=== PATIENT | female | born 1955 | race Two or more races ===

== ENCOUNTER 2023-12-21 10:36 | Inpatient (IN) | payer OTHER ==
[~2023-12-21] VITALS: Ht 157.5 cm; Wt 69.0 kg
[2023-12-21] MEDS ORDERED: 0.9% SODIUM CHLORIDE 10 ML SYRINGE IVP PRN (10:45)
[2023-12-21] MEDS ORDERED: NOREPINEPHRINE 8 MG/0.9 % NACL 250 ML IV ONE (10:57)
[2023-12-21 11:00] LABS: SOURCE, BLOOD GAS ARTERIAL; TEMPERATURE, FAHRENHEIT, BG 90.1 FAHREN (96.0-98.6)
[2023-12-21] MEDS: INSULIN REGULAR, HUMAN 100 UNITS/ML IVP ONE (11:09)
[2023-12-21] MEDS: SODIUM CHLORIDE 0.9% 2,400 ML IV ONE (11:09)
[2023-12-21 11:10] LABS: HEMOGLOBIN 12.7 g/dL (12.0-16.0); MEAN CORPUSCULAR HEMOGLOBIN 31.5 pg (26.0-34.0); MEAN CORPUSCULAR HGB CONC 25.9 G/dL (31.0-37.0); MEAN CORPUSCULAR VOLUME 122 fL (80-100); PLATELET COUNT (AUTO) 292 K/uL (150-450); RED BLOOD CELL COUNT(AUTO) 4.02 MIL/uL (4.00-5.20); RED CELL DISTRIBUTION WIDTH 15.7 % (11.5-14.5)
[2023-12-21] MEDS: NOREPINEPHRINE 8 MG/0.9 % NACL 250 ML IV PRN (11:10)
[2023-12-21 11:12] LABS: ABG A-A DIFF O2 105.8 mmHg (10-20.0); ABG BASE EXCESS -29.7 mmol/L (-2.0-3.0); ABG CARBOXYHEMOGLOBIN 0.2 % (0.0-1.5); ABG HCO3 5.2 mmol/L (22.0-26.0); ABG METHEMOGLOBIN 1.1 % (0.0-1.5); ABG OXYGEN CONTENT 16.2 mL/dL (15.0-23.0); ABG OXYGEN SATURATION 96.7 % (95.0-98.0); ABG OXYHEMOGLOBIN 95.4 % (94.0-100.0); ABG PCO2 14 mmHg (35-45); ABG PH 6.949 (7.35-7.450); ALLEN TEST, BLOOD GAS Positive; PO2, ARTERIAL BG 80.3 mmHg (79.0-87.0); SITE, BLOOD GAS RT BRACHIAL
[2023-12-21 11:13] LABS: O2 DEVICE,BLOOD GAS CANNULA (ROOM AIR)
[2023-12-21] MEDS ORDERED: SODIUM BICARBONATE [ADULT] 8.4% 50 MEQ/50 ML SYRINGE IVP ONE (11:16)
[2023-12-21 11:19] LABS: APPEARANCE,URINE CLEAR (CLEAR); BILIRUBIN,URINE NEGATIVE (NEGATIVE); COLOR,URINE LIGHT YELLOW (YELLOW); GLUCOSE, URINE (UA) >=1000 mg/dL (NEGATIVE); KETONES,URINE 40-60 mg/dL (NEGATIVE); LEUKOCYTE ESTERASE ,URINE NEGATIVE (NEGATIVE); NITRATE,URINE NEGATIVE (NEGATIVE); OCCULT BLOOD,URINE NEGATIVE (NEGATIVE); PROTEIN,URINE TRACE mg/dL (NEGATIVE); SPECIFIC GRAVITIY, URINE 1.028 (1.003-1.030); UROBILINOGEN,URINE <=1.0 mg/dL (<=1.0)
[2023-12-21 11:25] LABS: PROTHROMBIN TIME 10.8 SEC (9.4-11.6)
[2023-12-21 11:27] LABS: TROPONIN I-HIGH SENSITIVITY 27 ng/L (<51)
[2023-12-21 11:33] LABS: LACTIC ACID 2.9 mmol/L (0.4-2.0)
[2023-12-21] MEDS: CefTRIAXone 1 GM/DEXTROSE 50 ML IV ONE (11:34)
[2023-12-21 11:37] LABS: ALANINE AMINOTRANSFERASE 26 U/L (12-78); ALBUMIN 2.4 g/dL (3.4-5.0); ALKALINE PHOSPHATASE 136 U/L (46-116); ANION GAP 35 mmol/L (8-16); ASPARTATE AMINOTRANSFERASE 17 U/L (15-37); BILIRUBIN,TOTAL 0.6 mg/dL (0.1-1.0); CALCIUM, TOTAL 9.1 mg/dL (8.8-10.5); CHLORIDE 95 mmol/L (98-107); CREATININE 3.73 mg/dL (0.60-1.30); GLOMERULAR FILTR. RATE CALC 12 mL/min (>60); POTASSIUM 3.7 mmol/L (3.5-5.1); SODIUM SERUM 137 mmol/L (136-145); TOTAL PROTEIN, SERUM 6.3 g/dL (6.4-8.2); UREA NITROGEN, BLOOD 60 mg/dL (7-18)
[2023-12-21 11:41] LABS: RBC,URINE None Seen /HPF (0-2)
[2023-12-21 11:43] LABS: BACTERIA,URINE Moderate /HPF (None Seen)
[2023-12-21 11:43] LABS: B-TYPE NATRIURETIC PEPTIDE 83 pg/mL (0-100)
[2023-12-21 11:46] LABS: ACETONE,BLOOD 1:32 (NEGATIVE)
[2023-12-21 11:49] LABS: BAND NEUTROPHILS % (MANUAL) 0 % (0-5); LYMPHOCYTES % (MANUAL) 23 % (22-44); MONOCYTES % (MANUAL) 5 % (2-9); SEGMENTED NEUTROPHILS % 72 % (40-70); TOTAL CELLS COUNTED 100
[2023-12-21] MEDS: SODIUM BICARBONATE [ADULT] 8.4% 50 MEQ/50 ML SYRINGE IVP ONE (11:49)
[2023-12-21 11:50] LABS: CARBON DIOXIDE 7 mmol/L (22-29); GLUCOSE,RANDOM 1418 mg/dL (70-110); LIPASE 944 U/L (16-77)
[2023-12-21] MEDS ORDERED: DEXTROSE 50%-WATER 25 GM/50 ML SYRINGE IVP PRN ×2 (12:00→12:15)
[2023-12-21] MEDS ORDERED: DEXTROSE 5%-WATER 1,000 ML IV SCH (12:00)
[2023-12-21] MEDS: INSULIN REGULAR, HUMAN 100 UNITS in SODIUM CHLORIDE 0.9% 99 ML IV PRN (12:14)
[2023-12-21] MEDS ORDERED: POTASSIUM CHL 20 MEQ/0.45% NS 1,000 ML IV PRN (12:15)
[2023-12-21] MEDS ORDERED: SODIUM CHLORIDE 0.45% 1,000 ML IV PRN (12:15)
[2023-12-21] MEDS ORDERED: POTASSIUM CHLORIDE 40 MEQ in SODIUM CHLORIDE 0.45% 1,000 ML IV PRN (12:15)
[2023-12-21] MEDS ORDERED: DEXTROSE 5%-0.45% SODIUM CHL 1,000 ML IV PRN (12:15)
[2023-12-21] MEDS: SODIUM CHLORIDE 0.9% 1,000 ML IV SCH (12:50)
[2023-12-21 12:59] LABS: COVID AG,FIA SOURCE NASAL SWAB
[2023-12-21 13:20] LABS: SARS-COV2 (COVID) ANTIGEN,FIA Negative (Negative)
[2023-12-21 13:32] LABS: CALCIUM, TOTAL 8.3 mg/dL (8.8-10.5); CREATININE 3.4 mg/dL (0.60-1.30)
[2023-12-21 13:53] LABS: POTASSIUM 2.3 mmol/L (3.5-5.1)
[2023-12-21] MEDS: POTASSIUM CHL 10 MEQ/WATER 50 ML IV SCH ×2 (14:49→18:48)
[2023-12-21] MEDS: POTASSIUM CHLORIDE 10% 40 MEQ/30 ML LIQUID UDCUP PO ONE ×3 (15:43→19:44)
[2023-12-21 15:51] LABS: SALICYLATE 6.3 mg/dL (2.8-20.0)
[2023-12-21 16:06] LABS: ANION GAP 33 mmol/L (8-16); CALCIUM, TOTAL 8.5 mg/dL (8.8-10.5); CHLORIDE 105 mmol/L (98-107); CREATININE 3.21 mg/dL (0.60-1.30); GLOMERULAR FILTR. RATE CALC 14 mL/min (>60); PHOSPHORUS 3.7 mg/dL (2.5-4.9); SODIUM SERUM 146 mmol/L (136-145); UREA NITROGEN, BLOOD 53 mg/dL (7-18)
[2023-12-21 16:25] LABS: ACETAMINOPHEN < 2 mcg/mL (10-30); CARBON DIOXIDE 8 mmol/L (22-29); GLUCOSE,RANDOM 1328 mg/dL (70-110); POTASSIUM 2.1 mmol/L (3.5-5.1)
[2023-12-21] MEDS: PETROLATUM,WHITE 5 GM PACKET JELLY TP ONE (16:52)
[2023-12-21] MEDS: PHENYLEPHRINE 200 MG/D5%-WATER 250 ML IV PRN (17:30)
[2023-12-21] MEDS: SODIUM CHLORIDE 0.45% 500 ML IV ONE (18:00)
[2023-12-21] MEDS ORDERED: ALBUTEROL SULFATE 2.5 MG/0.5 ML NEB SOLUTION NEB PRN (18:15)
[2023-12-21] MEDS ORDERED: MAGNESIUM HYDROXIDE SUSPENSION 30 ML UDCUP PO PRN (18:15)
[2023-12-21] MEDS ORDERED: BISACODYL 10 MG RECTAL RECTAL SUPPOSITORY PR PRN (18:15)
[2023-12-21] MEDS ORDERED: IPRATROPIUM BROMIDE 0.5 MG/2.5 ML NEB SOLUTION NEB PRN (18:15)
[2023-12-21] MEDS ORDERED: ZOLPIDEM TARTRATE 5 MG TABLET PO PRN (18:15)
[2023-12-21 18:53] LABS: ALBUMIN 2.9 g/dL (3.4-5.0); BILIRUBIN,TOTAL 0.6 mg/dL (0.1-1.0); CALCIUM, TOTAL 8.8 mg/dL (8.8-10.5); CREATININE 3.22 mg/dL (0.60-1.30); MAGNESIUM 3.3 mg/dL (1.80-2.40); PHOSPHORUS 3.1 mg/dL (2.5-4.9); POTASSIUM 3.4 mmol/L (3.5-5.1); TOTAL PROTEIN, SERUM 7.2 g/dL (6.4-8.2)
[2023-12-21 19:01] LABS: GLUCOMETER DEV NAME(LOC) ERT.5; GLUCOSE,POINT OF CARE > 600 MG/DL (70-110)
[2023-12-21 20:30] VITALS: PULSE 131
[2023-12-21] MEDS: DOCUSATE SODIUM 100 MG CAPSULE PO SCH (21:00)
[2023-12-21] MEDS: POTASSIUM CHL 10 MEQ/WATER 50 ML IV ONE (21:06)
[2023-12-21 21:21] LABS: HEMATOCRIT 50.3 % (36-46); HEMOGLOBIN 15.4 g/dL (12.0-16.0); MEAN CORPUSCULAR HEMOGLOBIN 31.4 pg (26.0-34.0); MEAN CORPUSCULAR HGB CONC 30.7 G/dL (31.0-37.0); MEAN CORPUSCULAR VOLUME 103 fL (80-100); PLATELET COUNT (AUTO) 283 K/uL (150-450); RED BLOOD CELL COUNT(AUTO) 4.91 MIL/uL (4.00-5.20); RED CELL DISTRIBUTION WIDTH 15.3 % (11.5-14.5); WHITE BLOOD COUNT (AUTO) 19.1 K/uL (4.5-11.0)
[2023-12-21 22:25] LABS: BAND NEUTROPHILS % (MANUAL) 6 % (0-5); LYMPHOCYTES % (MANUAL) 11 % (22-44); METAMYELOCYTES % 1 % (0-0); MONOCYTES % (MANUAL) 14 % (2-9); SEGMENTED NEUTROPHILS % 68 % (40-70); TOTAL CELLS COUNTED 100
[2023-12-21 23:07] LABS: CALCIUM, TOTAL 8.9 mg/dL (8.8-10.5); CREATININE 3.29 mg/dL (0.60-1.30); PHOSPHORUS 1.7 mg/dL (2.5-4.9); POTASSIUM 3.7 mmol/L (3.5-5.1)
[2023-12-21 23:14] LABS: ABG BASE EXCESS -18.6 mmol/L (-2.0-3.0); ABG CARBOXYHEMOGLOBIN 0.8 % (0.0-1.5); ABG HCO3 12.6 mmol/L (22.0-26.0); ABG METHEMOGLOBIN 0.1 % (0.0-1.5); ABG OXYGEN CONTENT 21.8 mL/dL (15.0-23.0); ABG OXYGEN SATURATION 98.3 % (95.0-98.0); ABG OXYHEMOGLOBIN 97.4 % (94.0-100.0); ABG PCO2 20 mmHg (35-45); ABG PH 7.257 (7.35-7.450); ABG TOTAL HEMOGLOBIN 15.8 G/dL (12.0-18.0); PO2, ARTERIAL BG 113.9 mmHg (79.0-87.0); SOURCE, BLOOD GAS ARTERIAL; TEMPERATURE, FAHRENHEIT, BG 97.4 FAHREN (96.0-98.6)
[2023-12-21 23:15] LABS: ALLEN TEST, BLOOD GAS POS; O2 DEVICE,BLOOD GAS CANNULA (ROOM AIR); SITE, BLOOD GAS LFT RADIAL
[2023-12-22] VITALS: BP 103/45; PULSE 130; RESP 25; TEMP 98
[2023-12-22] MEDS: SODIUM PHOS,M-BASIC-D-BASIC 30 MMOL in DEXTROSE 5%-WATER 250 ML IV ONE (00:20)
[2023-12-22] MEDS: HEPARIN SODIUM,PORCINE 5,000 UNITS/ML VIAL SQ SCH (00:20)
[2023-12-22] MEDS: POTASSIUM CHLORIDE 40 MEQ in SODIUM CHLORIDE 0.45% 1,000 ML IV PRN (00:20)
[2023-12-22] MEDS: INSULIN REGULAR, HUMAN 100 UNITS/ML IVP PRN (01:15)
[2023-12-22 02:58] LABS: CALCIUM, TOTAL 8.7 mg/dL (8.8-10.5); CREATININE 3.21 mg/dL (0.60-1.30); POTASSIUM 4.5 mmol/L (3.5-5.1)
[2023-12-22] MEDS: POTASSIUM CHL 20 MEQ/0.45% NS 1,000 ML IV PRN (03:49)
[2023-12-22] MEDS: INSULIN REGULAR, HUMAN 100 UNITS in SODIUM CHLORIDE 0.9% 99 ML IV PRN (03:53)
[2023-12-22 04:00] VITALS: BP 105/47; PULSE 129; RESP 21; TEMP 99.9
[2023-12-22 05:14] LABS: ACETONE,BLOOD 1:16 (NEGATIVE)
[2023-12-22 05:28] LABS: ALANINE AMINOTRANSFERASE 83 U/L (12-78); ALBUMIN 2.4 g/dL (3.4-5.0); ALKALINE PHOSPHATASE 129 U/L (46-116); ANION GAP 19 mmol/L (8-16); ASPARTATE AMINOTRANSFERASE 212 U/L (15-37); BILIRUBIN,TOTAL 0.5 mg/dL (0.1-1.0); CALCIUM, TOTAL 8.6 mg/dL (8.8-10.5); CARBON DIOXIDE 14 mmol/L (22-29); CHLORIDE 117 mmol/L (98-107); CREATININE 3.27 mg/dL (0.60-1.30); GLOMERULAR FILTR. RATE CALC 14 mL/min (>60); PHOSPHORUS 3.2 mg/dL (2.5-4.9); POTASSIUM 4.9 mmol/L (3.5-5.1); SODIUM SERUM 150 mmol/L (136-145); TOTAL PROTEIN, SERUM 6.1 g/dL (6.4-8.2); UREA NITROGEN, BLOOD 51 mg/dL (7-18)
[2023-12-22 05:31] LABS: GLUCOSE,RANDOM 736 mg/dL (70-110); LACTIC ACID 5.8 mmol/L (0.4-2.0)
[2023-12-22 07:16] LABS: BASOPHILS % (AUTO) 0.2 % (0.0-2.0); EOSINOPHILS % (AUTO) 0 % (1.0-6.0); HEMATOCRIT 45.1 % (36-46); HEMOGLOBIN 14.9 g/dL (12.0-16.0); LYMPHOCYTES # (AUTO) 0.6 K/uL (1.0-4.8); LYMPHOCYTES % (AUTO) 4.1 % (22.0-44.0); MEAN CORPUSCULAR HEMOGLOBIN 31.5 pg (26.0-34.0); MEAN CORPUSCULAR VOLUME 95 fL (80-100); MONOCYTES # (AUTO) 1.8 K/uL (0.1-1.0); MONOCYTES % (AUTO) 11.3 % (2.0-9.0); NEUTROPHILS # (AUTO) 13.3 K/uL (1.8-7.7); NEUTROPHILS % (AUTO) 84.4 % (40.0-70.0); PLATELET COUNT (AUTO) 221 K/uL (150-450); RED BLOOD CELL COUNT(AUTO) 4.73 MIL/uL (4.00-5.20); RED CELL DISTRIBUTION WIDTH 14.2 % (11.5-14.5); WHITE BLOOD COUNT (AUTO) 15.8 K/uL (4.5-11.0)
[2023-12-22 07:31] LABS: RBC MORPHOLOGY COMMENT NORMAL RBC MORPH
[2023-12-22 07:47] LABS: CALCIUM, TOTAL 8.6 mg/dL (8.8-10.5); CREATININE 3.14 mg/dL (0.60-1.30); POTASSIUM 5.2 mmol/L (3.5-5.1)
[2023-12-22 08:00] VITALS: BP 130/51; PULSE 124; RESP 22; TEMP 100
[2023-12-22] MEDS: PANTOPRAZOLE SODIUM 40 MG/VIAL IVP SCH (08:16)
[2023-12-22] MEDS ORDERED: SODIUM CHLORIDE 0.9% 1,000 ML ONE (10:07)
[2023-12-22] MEDS: SODIUM CHLORIDE 0.9% 500 ML IV ONE (10:18)
[2023-12-22 10:41] LABS: GLUCOMETER DEV NAME(LOC) ICUN.5; GLUCOSE,POINT OF CARE 482 MG/DL (70-110)
[2023-12-22 10:41] LABS: GLUCOMETER DEV NAME(LOC) ICUN.5; GLUCOSE,POINT OF CARE 418 MG/DL (70-110)
[2023-12-22 10:41] LABS: GLUCOMETER DEV NAME(LOC) ICUN.5; GLUCOSE,POINT OF CARE 272 MG/DL (70-110)
[2023-12-22 10:41] LABS: GLUCOMETER DEV NAME(LOC) ICUN.5; GLUCOSE,POINT OF CARE 333 MG/DL (70-110)
[2023-12-22] MEDS: CefTRIAXone 1 GM/DEXTROSE 50 ML IV SCH (11:22)
[2023-12-22] MEDS: DEXTROSE 5%-0.45% SODIUM CHL 1,000 ML IV PRN (11:44)
[2023-12-22 12:00] VITALS: BP 128/60; PULSE 111; RESP 22; TEMP 99.9
[2023-12-22 12:11] LABS: CALCIUM, TOTAL 8.4 mg/dL (8.8-10.5); CREATININE 2.97 mg/dL (0.60-1.30); POTASSIUM 5.2 mmol/L (3.5-5.1)
[2023-12-22] MEDS: ONDANSETRON HCL 4 MG/2 ML VIAL IVP PRN (14:52)
[2023-12-22 16:00] VITALS: BP 106/62; PULSE 108; RESP 24; TEMP 99.4
[2023-12-22 16:10] LABS: CREATININE 2.69 mg/dL (0.60-1.30); POTASSIUM 5.3 mmol/L (3.5-5.1)
[2023-12-22] MEDS: DEXTROSE 50%-WATER 25 GM/50 ML SYRINGE IVP PRN (16:10)
[2023-12-22] MEDS: CefTRIAXone SODIUM 2 GM in DEXTROSE 5%-WATER 50 ML IV SCH (17:11)
[2023-12-22] MEDS: SODIUM CHLORIDE 0.9% 250 ML IV ONE (17:17)
[2023-12-22] MEDS ORDERED: VASOPRESSIN 40 UNITS in DEXTROSE 5%-WATER 98 ML IV PRN (18:00)
[2023-12-22] MEDS: AMIODARONE HCL 360 MG in DEXTROSE 5%-WATER 242.8 ML IV ONE (18:30)
[2023-12-22 18:36] LABS: BASOPHILS % (AUTO) 0.3 % (0.0-2.0); EOSINOPHILS % (AUTO) 0 % (1.0-6.0); HEMATOCRIT 40.5 % (36-46); HEMOGLOBIN 13.3 g/dL (12.0-16.0); LYMPHOCYTES # (AUTO) 1.2 K/uL (1.0-4.8); LYMPHOCYTES % (AUTO) 7.3 % (22.0-44.0); MEAN CORPUSCULAR HEMOGLOBIN 31.2 pg (26.0-34.0); MEAN CORPUSCULAR HGB CONC 32.8 G/dL (31.0-37.0); MEAN CORPUSCULAR VOLUME 95 fL (80-100); MONOCYTES # (AUTO) 0.9 K/uL (0.1-1.0); MONOCYTES % (AUTO) 5.9 % (2.0-9.0); NEUTROPHILS # (AUTO) 13.8 K/uL (1.8-7.7); PLATELET COUNT (AUTO) 168 K/uL (150-450); RED BLOOD CELL COUNT(AUTO) 4.27 MIL/uL (4.00-5.20); RED CELL DISTRIBUTION WIDTH 14.6 % (11.5-14.5)
[2023-12-22 18:45] LABS: CALCIUM, TOTAL 8.1 mg/dL (8.8-10.5); CREATININE 2.64 mg/dL (0.60-1.30); MAGNESIUM 2.2 mg/dL (1.80-2.40); PHOSPHORUS 2.6 mg/dL (2.5-4.9); POTASSIUM 5.8 mmol/L (3.5-5.1)
[2023-12-22 18:49] LABS: NEUTROPHILS % (AUTO) 86.5 % (40.0-70.0)
[2023-12-22 20:00] VITALS: BP 102/56; PULSE 178; PULSE 90; RESP 27; TEMP 98.5
[2023-12-22 20:14] LABS: TROPONIN I-HIGH SENSITIVITY 718 ng/L (<51)
[2023-12-22] MEDS: MORPHINE SULFATE 2 MG/ML SYRINGE IVP PRN (20:33)
[2023-12-22] MEDS: MetroNIDAZOLE 500 MG/NACL 100 ML IV SCH (21:17)
[2023-12-22 23:35] LABS: CALCIUM, TOTAL 7.5 mg/dL (8.8-10.5); CREATININE 2.59 mg/dL (0.60-1.30)
[2023-12-22 23:41] LABS: POTASSIUM 6.1 mmol/L (3.5-5.1)
[2023-12-23] VITALS: PULSE 95; RESP 22; TEMP 98
[2023-12-23] MEDS: AMIODARONE HCL 540 MG in DEXTROSE 5%-WATER 239.2 ML IV ONE (00:34)
[2023-12-23] MEDS: SODIUM CHLORIDE 0.45% 1,000 ML IV PRN (01:00)
[2023-12-23 02:48] LABS: CALCIUM, TOTAL 7.7 mg/dL (8.8-10.5); CREATININE 2.8 mg/dL (0.60-1.30); POTASSIUM 5.9 mmol/L (3.5-5.1)
[2023-12-23 03:16] LABS: GLUCOMETER DEV NAME(LOC) ICU.S6; GLUCOSE,POINT OF CARE 197 MG/DL (70-110)
[2023-12-23 03:16] LABS: GLUCOMETER DEV NAME(LOC) ICU.S6; GLUCOSE,POINT OF CARE 185 MG/DL (70-110)
[2023-12-23 03:16] LABS: GLUCOMETER DEV NAME(LOC) ICU.S6; GLUCOSE,POINT OF CARE 87 MG/DL (70-110)
[2023-12-23 03:16] LABS: GLUCOMETER DEV NAME(LOC) ICU.S6; GLUCOSE,POINT OF CARE 143 MG/DL (70-110)
[2023-12-23 03:16] LABS: GLUCOMETER DEV NAME(LOC) ICU.S6; GLUCOSE,POINT OF CARE 178 MG/DL (70-110)
[2023-12-23 03:16] LABS: GLUCOMETER DEV NAME(LOC) ICU.S6; GLUCOSE,POINT OF CARE 195 MG/DL (70-110)
[2023-12-23 03:16] LABS: GLUCOMETER DEV NAME(LOC) ICU.S6; GLUCOSE,POINT OF CARE 224 MG/DL (70-110)
[2023-12-23 03:16] LABS: GLUCOMETER DEV NAME(LOC) ICU.S6; GLUCOSE,POINT OF CARE 68 MG/DL (70-110)
[2023-12-23 03:16] LABS: GLUCOMETER DEV NAME(LOC) ICU.S6; GLUCOSE,POINT OF CARE 135 MG/DL (70-110)
[2023-12-23 03:21] LABS: GLUCOMETER DEV NAME(LOC) ICU.S6; GLUCOSE,POINT OF CARE 306 MG/DL (70-110)
[2023-12-23 03:21] LABS: GLUCOMETER DEV NAME(LOC) ICU.S6; GLUCOSE,POINT OF CARE 244 MG/DL (70-110)
[2023-12-23 03:21] LABS: GLUCOMETER DEV NAME(LOC) ICU.S6; GLUCOSE,POINT OF CARE 258 MG/DL (70-110)
[2023-12-23 03:21] LABS: GLUCOMETER DEV NAME(LOC) ICU.S6; GLUCOSE,POINT OF CARE 199 MG/DL (70-110)
[2023-12-23 03:21] LABS: GLUCOMETER DEV NAME(LOC) ICU.S6; GLUCOSE,POINT OF CARE 257 MG/DL (70-110)
[2023-12-23 03:21] LABS: GLUCOMETER DEV NAME(LOC) ICU.S6; GLUCOSE,POINT OF CARE 284 MG/DL (70-110)
[2023-12-23 03:21] LABS: GLUCOMETER DEV NAME(LOC) ICU.S6; GLUCOSE,POINT OF CARE 267 MG/DL (70-110)
[2023-12-23 03:21] LABS: GLUCOMETER DEV NAME(LOC) ICU.S6; GLUCOSE,POINT OF CARE 201 MG/DL (70-110)
[2023-12-23 03:21] LABS: GLUCOMETER DEV NAME(LOC) ICU.S6; GLUCOSE,POINT OF CARE 307 MG/DL (70-110)
[2023-12-23 04:00] VITALS: BP 138/38; PULSE 57; PULSE 80; RESP 22; TEMP 98.3
[2023-12-23 05:26] LABS: GLUCOMETER DEV NAME(LOC) ICUN.5; GLUCOSE,POINT OF CARE 255 MG/DL (70-110)
[2023-12-23 05:26] LABS: GLUCOMETER DEV NAME(LOC) ICUN.5; GLUCOSE,POINT OF CARE 255 MG/DL (70-110)
[2023-12-23 05:28] LABS: BASOPHILS % (AUTO) 0.3 % (0.0-2.0); EOSINOPHILS % (AUTO) 0 % (1.0-6.0); HEMATOCRIT 38.5 % (36-46); HEMOGLOBIN 12.9 g/dL (12.0-16.0); LYMPHOCYTES # (AUTO) 1.8 K/uL (1.0-4.8); LYMPHOCYTES % (AUTO) 10.7 % (22.0-44.0); MEAN CORPUSCULAR HEMOGLOBIN 31.6 pg (26.0-34.0); MEAN CORPUSCULAR HGB CONC 33.4 G/dL (31.0-37.0); MEAN CORPUSCULAR VOLUME 95 fL (80-100); MONOCYTES # (AUTO) 0.7 K/uL (0.1-1.0); NEUTROPHILS # (AUTO) 14.7 K/uL (1.8-7.7); PLATELET COUNT (AUTO) 139 K/uL (150-450); RED BLOOD CELL COUNT(AUTO) 4.07 MIL/uL (4.00-5.20); WHITE BLOOD COUNT (AUTO) 17.2 K/uL (4.5-11.0)
[2023-12-23 05:50] LABS: CALCIUM, TOTAL 7.5 mg/dL (8.8-10.5); CREATININE 2.7 mg/dL (0.60-1.30); POTASSIUM 5.7 mmol/L (3.5-5.1)
[2023-12-23 06:47] LABS: PHOSPHORUS 3.4 mg/dL (2.5-4.9)
[2023-12-23 07:50] LABS: RBC MORPHOLOGY COMMENT NORMAL RBC MORPH
[2023-12-23 08:00] VITALS: BP 149/45; PULSE 82; RESP 23; TEMP 97.1
[2023-12-23] MEDS: SODIUM CHLORIDE 0.9% 500 ML IV ONE ×2 (08:07→09:35)
[2023-12-23 08:51] LABS: GLUCOMETER DEV NAME(LOC) ICU.S6; GLUCOSE,POINT OF CARE 229 MG/DL (70-110)
[2023-12-23 10:40] LABS: BASOPHILS % (AUTO) 0.3 % (0.0-2.0); EOSINOPHILS % (AUTO) 0 % (1.0-6.0); HEMATOCRIT 36.2 % (36-46); HEMOGLOBIN 12.1 g/dL (12.0-16.0); LYMPHOCYTES # (AUTO) 1.7 K/uL (1.0-4.8); LYMPHOCYTES % (AUTO) 11.9 % (22.0-44.0); MEAN CORPUSCULAR HEMOGLOBIN 31.9 pg (26.0-34.0); MEAN CORPUSCULAR HGB CONC 33.5 G/dL (31.0-37.0); MEAN CORPUSCULAR VOLUME 95 fL (80-100); MONOCYTES # (AUTO) 0.5 K/uL (0.1-1.0); MONOCYTES % (AUTO) 3.8 % (2.0-9.0); NEUTROPHILS # (AUTO) 12.2 K/uL (1.8-7.7); PLATELET COUNT (AUTO) 117 K/uL (150-450); RED CELL DISTRIBUTION WIDTH 14.9 % (11.5-14.5); WHITE BLOOD COUNT (AUTO) 14.5 K/uL (4.5-11.0)
[2023-12-23 10:48] LABS: CALCIUM, TOTAL 7.1 mg/dL (8.8-10.5); CREATININE 2.69 mg/dL (0.60-1.30)
[2023-12-23 11:11] LABS: ABG BASE EXCESS -17.1 mmol/L (-2.0-3.0); ABG CARBOXYHEMOGLOBIN 0.2 % (0.0-1.5); ABG HCO3 13.3 mmol/L (22.0-26.0); ABG METHEMOGLOBIN 0.3 % (0.0-1.5); ABG OXYGEN CONTENT 16.6 mL/dL (15.0-23.0); ABG OXYGEN SATURATION 94.6 % (95.0-98.0); ABG OXYHEMOGLOBIN 94.1 % (94.0-100.0); ABG PCO2 16 mmHg (35-45); ABG PH 7.343 (7.35-7.450); ABG TOTAL HEMOGLOBIN 12.5 G/dL (12.0-18.0); PO2, ARTERIAL BG 74.2 mmHg (79.0-87.0); SOURCE, BLOOD GAS ARTERIAL; TEMPERATURE, FAHRENHEIT, BG 98.6 FAHREN (96.0-98.6)
[2023-12-23 11:12] LABS: O2 DEVICE,BLOOD GAS CANNULA (ROOM AIR); SITE, BLOOD GAS ARTERIAL LINE
[2023-12-23 11:16] LABS: GLUCOMETER DEV NAME(LOC) ICU.S6; GLUCOSE,POINT OF CARE 221 MG/DL (70-110)
[2023-12-23] MEDS: CALCIUM GLUCONATE 100 MG/ML 10 ML IVP ONE (11:55)
[2023-12-23 12:00] VITALS: BP 111/41; PULSE 82; PULSE 84; RESP 23; TEMP 98
[2023-12-23 12:16] LABS: TROPONIN I-HIGH SENSITIVITY 246 ng/L (<51)
[2023-12-23 12:20] LABS: LACTIC ACID 2.9 mmol/L (0.4-2.0)
[2023-12-23 12:55] LABS: GLUCOMETER DEV NAME(LOC) ICUN.5; GLUCOSE,POINT OF CARE 217 MG/DL (70-110)
[2023-12-23 12:55] LABS: GLUCOMETER DEV NAME(LOC) ICUN.5; GLUCOSE,POINT OF CARE 299 MG/DL (70-110)
[2023-12-23 12:55] LABS: GLUCOMETER DEV NAME(LOC) ICUN.5; GLUCOSE,POINT OF CARE 262 MG/DL (70-110)
[2023-12-23] MEDS: RINGERS SOLUTION,LACTATED 500 ML IV ONE ×2 (13:19→16:10)
[2023-12-23 13:41] LABS: GLUCOMETER DEV NAME(LOC) ICUN.5; GLUCOSE,POINT OF CARE 139 MG/DL (70-110)
[2023-12-23 15:03] LABS: HEMATOCRIT 35.1 % (36-46); HEMOGLOBIN 11.6 g/dL (12.0-16.0); MEAN CORPUSCULAR HEMOGLOBIN 31.5 pg (26.0-34.0); MEAN CORPUSCULAR HGB CONC 33.1 G/dL (31.0-37.0); MEAN CORPUSCULAR VOLUME 95 fL (80-100); PLATELET COUNT (AUTO) 97 K/uL (150-450); RED BLOOD CELL COUNT(AUTO) 3.69 MIL/uL (4.00-5.20); RED CELL DISTRIBUTION WIDTH 14.7 % (11.5-14.5); WHITE BLOOD COUNT (AUTO) 14.6 K/uL (4.5-11.0)
[2023-12-23 15:34] LABS: CALCIUM, TOTAL 7.7 mg/dL (8.8-10.5); CREATININE 2.63 mg/dL (0.60-1.30); POTASSIUM 4.9 mmol/L (3.5-5.1)
[2023-12-23 16:00] VITALS: BP 116/35; PULSE 79; RESP 20; TEMP 97.7
[2023-12-23] MEDS: AMIODARONE HCL 750 MG in DEXTROSE 5%-WATER 485 ML IV SCH (16:12)
[2023-12-23 16:21] LABS: ALBUMIN 1.7 g/dL (3.4-5.0); BILIRUBIN,DIRECT 0.2 mg/dL (0.00-0.20); BILIRUBIN,TOTAL 0.3 mg/dL (0.1-1.0); TOTAL PROTEIN, SERUM 4.7 g/dL (6.4-8.2)
[2023-12-23 16:46] LABS: GLUCOMETER DEV NAME(LOC) ICUN.5; GLUCOSE,POINT OF CARE 179 MG/DL (70-110)
[2023-12-23 16:46] LABS: GLUCOMETER DEV NAME(LOC) ICUN.5; GLUCOSE,POINT OF CARE 136 MG/DL (70-110)
[2023-12-23 16:46] LABS: GLUCOMETER DEV NAME(LOC) ICUN.5; GLUCOSE,POINT OF CARE 141 MG/DL (70-110)
[2023-12-23 17:00] LABS: BAND NEUTROPHILS % (MANUAL) 1 % (0-5); LYMPHOCYTES % (MANUAL) 10 % (22-44); MONOCYTES % (MANUAL) 3 % (2-9); SEGMENTED NEUTROPHILS % 86 % (40-70); TOTAL CELLS COUNTED 100
[2023-12-23] MEDS: LACTULOSE 200 GM/300 ML RECTAL SOLUTION PR ONE (18:11)
[2023-12-23 18:50] LABS: BASOPHILS % (AUTO) 0.1 % (0.0-2.0); EOSINOPHILS % (AUTO) 0 % (1.0-6.0); HEMATOCRIT 34.9 % (36-46); HEMOGLOBIN 11.5 g/dL (12.0-16.0); LYMPHOCYTES # (AUTO) 1.8 K/uL (1.0-4.8); LYMPHOCYTES % (AUTO) 12.7 % (22.0-44.0); MEAN CORPUSCULAR HEMOGLOBIN 31.5 pg (26.0-34.0); MEAN CORPUSCULAR VOLUME 95 fL (80-100); MONOCYTES # (AUTO) 0.5 K/uL (0.1-1.0); MONOCYTES % (AUTO) 3.6 % (2.0-9.0); NEUTROPHILS # (AUTO) 11.8 K/uL (1.8-7.7); NEUTROPHILS % (AUTO) 83.6 % (40.0-70.0); PLATELET COUNT (AUTO) 91 K/uL (150-450); RED BLOOD CELL COUNT(AUTO) 3.66 MIL/uL (4.00-5.20); RED CELL DISTRIBUTION WIDTH 14.8 % (11.5-14.5); WHITE BLOOD COUNT (AUTO) 14.1 K/uL (4.5-11.0)
[2023-12-23 19:01] LABS: CALCIUM, TOTAL 7.5 mg/dL (8.8-10.5); CREATININE 2.69 mg/dL (0.60-1.30); POTASSIUM 5.1 mmol/L (3.5-5.1)
[2023-12-23 19:56] LABS: GLUCOMETER DEV NAME(LOC) ICU.S6; GLUCOSE,POINT OF CARE 116 MG/DL (70-110)
[2023-12-23 20:00] VITALS: BP 114/40; PULSE 75; RESP 20; TEMP 98
[2023-12-23 20:01] LABS: GLUCOMETER DEV NAME(LOC) ICU.S6; GLUCOSE,POINT OF CARE 93 MG/DL (70-110)
[2023-12-23 20:46] LABS: GLUCOMETER DEV NAME(LOC) ICU.S6; GLUCOSE,POINT OF CARE 98 MG/DL (70-110)
[2023-12-23] MEDS: DEXTROSE 5% IV SCH (21:10)
[2023-12-23] MEDS: WATER IV SCH (21:10)
[2023-12-23] MEDS: SODIUM BICARBONATE IV SCH (21:10)
[2023-12-23 21:41] LABS: GLUCOMETER DEV NAME(LOC) ICU.S6; GLUCOSE,POINT OF CARE 82 MG/DL (70-110)
[2023-12-23 22:41] LABS: GLUCOMETER DEV NAME(LOC) ICU.S6; GLUCOSE,POINT OF CARE 89 MG/DL (70-110)
[2023-12-23 23:33] LABS: ACETONE,BLOOD NEGATIVE (NEGATIVE)
[2023-12-23 23:43] LABS: ANION GAP 18 mmol/L (8-16); CALCIUM, TOTAL 7.9 mg/dL (8.8-10.5); CARBON DIOXIDE 10 mmol/L (22-29); CHLORIDE 113 mmol/L (98-107); CREATININE 2.82 mg/dL (0.60-1.30); GLOMERULAR FILTR. RATE CALC 17 mL/min (>60); GLUCOSE,RANDOM 157 mg/dL (70-110); POTASSIUM 5.4 mmol/L (3.5-5.1); SODIUM SERUM 141 mmol/L (136-145); UREA NITROGEN, BLOOD 50 mg/dL (7-18)
[2023-12-24] VITALS (14 sets, daily range): BP systolic 97–150; BP diastolic 28–65; PULSE 68–122; RESP 17–22; TEMP 97.8–99.1
[2023-12-24 00:01] LABS: GLUCOMETER DEV NAME(LOC) ICU.S6; GLUCOSE,POINT OF CARE 120 MG/DL (70-110)
[2023-12-24 01:00] LABS: GLUCOMETER DEV NAME(LOC) ICUN.5; GLUCOSE,POINT OF CARE 125 MG/DL (70-110)
[2023-12-24 01:00] LABS: GLUCOMETER DEV NAME(LOC) ICUN.5; GLUCOSE,POINT OF CARE 123 MG/DL (70-110)
[2023-12-24 02:06] LABS: GLUCOMETER DEV NAME(LOC) ICU.S6; GLUCOSE,POINT OF CARE 118 MG/DL (70-110)
[2023-12-24 02:51] LABS: GLUCOMETER DEV NAME(LOC) ICU.S6; GLUCOSE,POINT OF CARE 106 MG/DL (70-110)
[2023-12-24 03:50] LABS: GLUCOMETER DEV NAME(LOC) ICU.S6; GLUCOSE,POINT OF CARE 103 MG/DL (70-110)
[2023-12-24 04:45] LABS: BASOPHILS % (AUTO) 0.3 % (0.0-2.0); EOSINOPHILS % (AUTO) 0.2 % (1.0-6.0); HEMATOCRIT 33.8 % (36-46); HEMOGLOBIN 11.3 g/dL (12.0-16.0); LYMPHOCYTES # (AUTO) 1.6 K/uL (1.0-4.8); LYMPHOCYTES % (AUTO) 13.6 % (22.0-44.0); MEAN CORPUSCULAR HEMOGLOBIN 31.5 pg (26.0-34.0); MEAN CORPUSCULAR HGB CONC 33.4 G/dL (31.0-37.0); MEAN CORPUSCULAR VOLUME 95 fL (80-100); MONOCYTES # (AUTO) 0.5 K/uL (0.1-1.0); MONOCYTES % (AUTO) 4.1 % (2.0-9.0); NEUTROPHILS # (AUTO) 9.5 K/uL (1.8-7.7); NEUTROPHILS % (AUTO) 81.8 % (40.0-70.0); RED BLOOD CELL COUNT(AUTO) 3.58 MIL/uL (4.00-5.20); RED CELL DISTRIBUTION WIDTH 14.8 % (11.5-14.5); WHITE BLOOD COUNT (AUTO) 11.6 K/uL (4.5-11.0)
[2023-12-24 04:46] LABS: GLUCOMETER DEV NAME(LOC) ICU.S6; GLUCOSE,POINT OF CARE 104 MG/DL (70-110)
[2023-12-24 04:48] LABS: CALCIUM, TOTAL 7.7 mg/dL (8.8-10.5); CREATININE 3.01 mg/dL (0.60-1.30); POTASSIUM 5.7 mmol/L (3.5-5.1)
[2023-12-24 05:07] LABS: PLATELET COUNT (AUTO) 62 K/uL (150-450)
[2023-12-24 05:22] LABS: LACTIC ACID 3.1 mmol/L (0.4-2.0)
[2023-12-24 08:01] LABS: ALBUMIN 1.7 g/dL (3.4-5.0); BILIRUBIN,DIRECT 0.4 mg/dL (0.00-0.20); BILIRUBIN,TOTAL 0.8 mg/dL (0.1-1.0); TOTAL PROTEIN, SERUM 5.1 g/dL (6.4-8.2)
[2023-12-24] MEDS: DEXTROSE 5% IV SCH (09:15)
[2023-12-24] MEDS: WATER IV SCH (09:15)
[2023-12-24] MEDS: SODIUM BICARBONATE IV SCH (09:15)
[2023-12-24] MEDS: BUMETANIDE 0.25 MG/ML 4 ML VIAL IVP ONE (09:18)
[2023-12-24] MEDS: INSULIN GLARGINE,HUM.REC.ANLOG 100 UNITS/ML SQ ONE (09:22)
[2023-12-24 10:49] LABS: HEMATOCRIT 32.8 % (36-46); HEMOGLOBIN 11.2 g/dL (12.0-16.0); MEAN CORPUSCULAR HEMOGLOBIN 32.4 pg (26.0-34.0); MEAN CORPUSCULAR HGB CONC 34.1 G/dL (31.0-37.0); MEAN CORPUSCULAR VOLUME 95 fL (80-100); RED BLOOD CELL COUNT(AUTO) 3.45 MIL/uL (4.00-5.20); WHITE BLOOD COUNT (AUTO) 9.3 K/uL (4.5-11.0)
[2023-12-24 11:37] LABS: CALCIUM, TOTAL 7.7 mg/dL (8.8-10.5); CREATININE 3.19 mg/dL (0.60-1.30)
[2023-12-24 11:40] LABS: POTASSIUM 6.3 mmol/L (3.5-5.1)
[2023-12-24 12:35] LABS: PLATELET COUNT (AUTO) 46 K/uL (150-450)
[2023-12-24 12:36] LABS: BAND NEUTROPHILS % (MANUAL) 3 % (0-5); LYMPHOCYTES % (MANUAL) 4 % (22-44); MONOCYTES % (MANUAL) 4 % (2-9); RBC MORPHOLOGY COMMENT ABNORMAL R; SEGMENTED NEUTROPHILS % 89 % (40-70); TOTAL CELLS COUNTED 100
[2023-12-24] MEDS: MIDAZOLAM HCL 2 MG/2 ML VIAL IVP ONE (12:42)
[2023-12-24] MEDS: CALCIUM GLUCONATE 100 MG/ML 10 ML IVP ONE (14:11)
[2023-12-24] MEDS: INSULIN LISPRO 100 UNITS/ML SQ PRN (14:22)
[2023-12-24 14:41] LABS: GLUCOMETER DEV NAME(LOC) ICU.S6; GLUCOSE,POINT OF CARE 213 MG/DL (70-110)
[2023-12-24 15:10] LABS: GLUCOMETER DEV NAME(LOC) ICUN.5; GLUCOSE,POINT OF CARE 204 MG/DL (70-110)
[2023-12-24 15:10] LABS: GLUCOMETER DEV NAME(LOC) ICUN.5; GLUCOSE,POINT OF CARE 115 MG/DL (70-110)
[2023-12-24 15:10] LABS: GLUCOMETER DEV NAME(LOC) ICUN.5; GLUCOSE,POINT OF CARE 172 MG/DL (70-110)
[2023-12-24] MEDS ORDERED: HEPARIN SODIUM,PORCINE 1,000 UNITS/ML VIAL IVP ONE (16:49)
[2023-12-24 18:31] LABS: GLUCOMETER DEV NAME(LOC) ICU.S6; GLUCOSE,POINT OF CARE 130 MG/DL (70-110)
[2023-12-24] MEDS: RINGERS SOLUTION,LACTATED 1,000 ML IV SCH (19:59)
[2023-12-24 22:28] LABS: INR 1.4 (0.9-1.1); PROTHROMBIN TIME 14.8 SEC (9.4-11.6)
[2023-12-24 22:59] LABS: PHOSPHORUS 3.5 mg/dL (2.5-4.9)
[2023-12-25] VITALS (15 sets, daily range): BP systolic 88–116; BP diastolic 49–71; PULSE 77–93; RESP 12–23; TEMP 98.5–98.9
[2023-12-25 00:31] LABS: GLUCOMETER DEV NAME(LOC) ICUN.5; GLUCOSE,POINT OF CARE 124 MG/DL (70-110)
[2023-12-25 05:53] LABS: BASOPHILS % (AUTO) 0.2 % (0.0-2.0); EOSINOPHILS % (AUTO) 1.4 % (1.0-6.0); LYMPHOCYTES # (AUTO) 0.9 K/uL (1.0-4.8); LYMPHOCYTES % (AUTO) 14.2 % (22.0-44.0); MEAN CORPUSCULAR HEMOGLOBIN 32.2 pg (26.0-34.0); MEAN CORPUSCULAR HGB CONC 34.6 G/dL (31.0-37.0); MEAN CORPUSCULAR VOLUME 93 fL (80-100); MONOCYTES # (AUTO) 0.5 K/uL (0.1-1.0); MONOCYTES % (AUTO) 7.8 % (2.0-9.0); NEUTROPHILS # (AUTO) 4.7 K/uL (1.8-7.7); NEUTROPHILS % (AUTO) 76.4 % (40.0-70.0); RED BLOOD CELL COUNT(AUTO) 3.11 MIL/uL (4.00-5.20); RED CELL DISTRIBUTION WIDTH 14.6 % (11.5-14.5); WHITE BLOOD COUNT (AUTO) 6.1 K/uL (4.5-11.0)
[2023-12-25 06:07] LABS: LACTIC ACID 2.3 mmol/L (0.4-2.0)
[2023-12-25 06:10] LABS: ALBUMIN 1.3 g/dL (3.4-5.0); BILIRUBIN,TOTAL 0.9 mg/dL (0.1-1.0); CALCIUM, TOTAL 7.8 mg/dL (8.8-10.5); CREATININE 2.36 mg/dL (0.60-1.30); MAGNESIUM 1.8 mg/dL (1.80-2.40); PHOSPHORUS 3.6 mg/dL (2.5-4.9)
[2023-12-25 07:02] LABS: PLATELET COUNT (AUTO) 35 K/uL (150-450)
[2023-12-25] MEDS ORDERED: SODIUM CHLORIDE 0.9% 2,000 ML ONE (11:29)
[2023-12-25] MEDS ORDERED: HEPARIN SODIUM,PORCINE 1,000 UNITS/ML VIAL ONE (12:00)
[2023-12-25 12:21] LABS: GLUCOMETER DEV NAME(LOC) ICUN.5; GLUCOSE,POINT OF CARE 119 MG/DL (70-110)
[2023-12-25 12:27] LABS: INR 1.4 (0.9-1.1); PROTHROMBIN TIME 14.5 SEC (9.4-11.6)
[2023-12-25 12:28] LABS: BILIRUBIN,DIRECT 0.3 mg/dL (0.00-0.20); BILIRUBIN,TOTAL 0.9 mg/dL (0.1-1.0)
[2023-12-25 19:16] LABS: GLUCOMETER DEV NAME(LOC) ICU.S6; GLUCOSE,POINT OF CARE 132 MG/DL (70-110)
[2023-12-25] MEDS: AMIODARONE HCL 200 MG TABLET PO SCH (21:47)
[2023-12-25 22:31] LABS: GLUCOMETER DEV NAME(LOC) ICU.S6; GLUCOSE,POINT OF CARE 316 MG/DL (70-110)
[2023-12-26] VITALS (13 sets, daily range): BP systolic 71–149; BP diastolic 46–78; PULSE 67–98; RESP 11–20; TEMP 97.7–99.6
[2023-12-26 01:27] LABS: PH,URINE DRUG SCREEN 6.5 (5.0-8.0)
[2023-12-26 01:33] LABS: ALCOHOL, URINE DRUG SCREEN NEGATIVE (NEGATIVE); AMPHET/METH SCREEN,URINE NEGATIVE (NEGATIVE); BARBITURATE SCREEN, URINE NEGATIVE (NEGATIVE); BENZODIAZEPINES SCREEN,URINE NEGATIVE (NEGATIVE); CANNABINOID SCREEN,URINE NEGATIVE (NEGATIVE); COCAINE SCREEN,URINE NEGATIVE (NEGATIVE); METHADONE SCREEN, URINE NEGATIVE (NEGATIVE); OPIATE SCREEN,URINE NEGATIVE (NEGATIVE); PHENCYCLIDINE SCREEN,URINE NEGATIVE (NEGATIVE)
[2023-12-26 01:51] LABS: GLUCOMETER DEV NAME(LOC) ICUN.5; GLUCOSE,POINT OF CARE 83 MG/DL (70-110)
[2023-12-26 05:52] LABS: BASOPHILS % (AUTO) 0.5 % (0.0-2.0); EOSINOPHILS % (AUTO) 1.9 % (1.0-6.0); HEMATOCRIT 32.9 % (36-46); HEMOGLOBIN 11.3 g/dL (12.0-16.0); LYMPHOCYTES # (AUTO) 0.8 K/uL (1.0-4.8); LYMPHOCYTES % (AUTO) 15.3 % (22.0-44.0); MEAN CORPUSCULAR HGB CONC 34.2 G/dL (31.0-37.0); MEAN CORPUSCULAR VOLUME 94 fL (80-100); MONOCYTES # (AUTO) 0.9 K/uL (0.1-1.0); MONOCYTES % (AUTO) 17.4 % (2.0-9.0); NEUTROPHILS # (AUTO) 3.2 K/uL (1.8-7.7); NEUTROPHILS % (AUTO) 64.9 % (40.0-70.0); PLATELET COUNT (AUTO) 61 K/uL (150-450); RED BLOOD CELL COUNT(AUTO) 3.51 MIL/uL (4.00-5.20); RED CELL DISTRIBUTION WIDTH 14.2 % (11.5-14.5)
[2023-12-26 06:08] LABS: ALBUMIN 1.2 g/dL (3.4-5.0); BILIRUBIN,TOTAL 0.7 mg/dL (0.1-1.0); CALCIUM, TOTAL 7.2 mg/dL (8.8-10.5); CREATININE 2.34 mg/dL (0.60-1.30); POTASSIUM 3.1 mmol/L (3.5-5.1); TOTAL PROTEIN, SERUM 4.1 g/dL (6.4-8.2)
[2023-12-26 06:35] LABS: GLUCOMETER DEV NAME(LOC) ICUN.5; GLUCOSE,POINT OF CARE 108 MG/DL (70-110)
[2023-12-26] MEDS: POTASSIUM CHLORIDE 20 MEQ ER TABLET PO ONE (09:51)
[2023-12-26 12:36] LABS: GLUCOMETER DEV NAME(LOC) ICUN.5; GLUCOSE,POINT OF CARE 158 MG/DL (70-110)
[2023-12-26] MEDS: ACETAMINOPHEN 325 MG TABLET PO PRN (12:55)
[2023-12-26] MEDS: MIDODRINE HCL 5 MG TABLET PO SCH (13:12)
[2023-12-26] MEDS: ALBUMIN HUMAN 25%-25GM/100ML 100 ML IV ONE (13:13)
[2023-12-26] MEDS ORDERED: SODIUM CHLORIDE 0.9% 2,000 ML ONE (13:32)
[2023-12-26 18:16] LABS: GLUCOMETER DEV NAME(LOC) ICU.S6; GLUCOSE,POINT OF CARE 120 MG/DL (70-110)
[2023-12-26] MEDS: INSULIN GLARGINE,HUM.REC.ANLOG 100 UNITS/ML SQ SCH (22:05)
[2023-12-26 22:15] LABS: GLUCOMETER DEV NAME(LOC) ICU.S6; GLUCOSE,POINT OF CARE 185 MG/DL (70-110)
[2023-12-27] VITALS: BP 94/54; PULSE 86; RESP 12; TEMP 99.4
[2023-12-27 04:00] VITALS: BP 125/50; PULSE 81; RESP 12; TEMP 99.3
[2023-12-27 04:06] LABS: CMV IGM ANTIBODY <30.0 AU/mL (0.0-29.9)
[2023-12-27 06:00] LABS: BASOPHILS % (AUTO) 0.2 % (0.0-2.0); EOSINOPHILS % (AUTO) 3.1 % (1.0-6.0); HEMATOCRIT 37.7 % (36-46); HEMOGLOBIN 12.8 g/dL (12.0-16.0); LYMPHOCYTES # (AUTO) 1.9 K/uL (1.0-4.8); LYMPHOCYTES % (AUTO) 25.1 % (22.0-44.0); MEAN CORPUSCULAR HEMOGLOBIN 32.1 pg (26.0-34.0); MEAN CORPUSCULAR VOLUME 95 fL (80-100); MONOCYTES # (AUTO) 1.1 K/uL (0.1-1.0); MONOCYTES % (AUTO) 14.6 % (2.0-9.0); NEUTROPHILS # (AUTO) 4.4 K/uL (1.8-7.7); PLATELET COUNT (AUTO) 93 K/uL (150-450); RED BLOOD CELL COUNT(AUTO) 3.99 MIL/uL (4.00-5.20); RED CELL DISTRIBUTION WIDTH 14.5 % (11.5-14.5); WHITE BLOOD COUNT (AUTO) 7.7 K/uL (4.5-11.0)
[2023-12-27 06:25] LABS: ALBUMIN 1.4 g/dL (3.4-5.0); BILIRUBIN,TOTAL 0.7 mg/dL (0.1-1.0); CALCIUM, TOTAL 8.1 mg/dL (8.8-10.5); CREATININE 2.26 mg/dL (0.60-1.30); PHOSPHORUS 2.9 mg/dL (2.5-4.9); POTASSIUM 3.5 mmol/L (3.5-5.1); TOTAL PROTEIN, SERUM 4.6 g/dL (6.4-8.2)
[2023-12-27] MEDS ORDERED: HEPARIN SODIUM,PORCINE 1,000 UNITS/ML VIAL IVP ONE (06:26)
[2023-12-27 08:00] VITALS: BP 118/60; PULSE 76; PULSE 80; RESP 11; TEMP 98.3
[2023-12-27 08:06] LABS: HEPATITIS A ANTIBODY IGM Negative (Negative); HEPATITIS B CORE IGM Negative (Negative); HEPATITIS C AB (EIA) Non Reactive (Non Reactive)
[2023-12-27 08:06] LABS: AFP (TUMOR MARKER) <1.8 ng/mL (0.0-9.2)
[2023-12-27 12:00] VITALS: BP 88/46; PULSE 73; PULSE 74; RESP 23; TEMP 98.7
[2023-12-27 13:36] LABS: GLUCOMETER DEV NAME(LOC) ICUN.5; GLUCOSE,POINT OF CARE 204 MG/DL (70-110)
[2023-12-27] MEDS: FUROSEMIDE 20 MG/2 ML VIAL IVP ONE (14:10)
[2023-12-27 16:00] VITALS: BP 115/54; PULSE 77; RESP 17; TEMP 99.2
[2023-12-27 20:00] VITALS: BP 122/61; PULSE 76; RESP 17; TEMP 98.5
[2023-12-27 20:06] LABS: GLUCOMETER DEV NAME(LOC) ICU.S6; GLUCOSE,POINT OF CARE 227 MG/DL (70-110)
[2023-12-27 23:16] LABS: GLUCOMETER DEV NAME(LOC) ICUN.5; GLUCOSE,POINT OF CARE 206 MG/DL (70-110)
[2023-12-28] VITALS: BP 129/57; PULSE 74; RESP 18; TEMP 98.5
[2023-12-28 04:00] VITALS: BP 109/56; PULSE 75; RESP 16; TEMP 97.8
[2023-12-28 05:56] LABS: BASOPHILS % (AUTO) 0.3 % (0.0-2.0); EOSINOPHILS % (AUTO) 2.8 % (1.0-6.0); HEMATOCRIT 34.9 % (36-46); HEMOGLOBIN 11.8 g/dL (12.0-16.0); LYMPHOCYTES # (AUTO) 2.2 K/uL (1.0-4.8); LYMPHOCYTES % (AUTO) 23.1 % (22.0-44.0); MEAN CORPUSCULAR HEMOGLOBIN 31.7 pg (26.0-34.0); MEAN CORPUSCULAR HGB CONC 33.8 G/dL (31.0-37.0); MEAN CORPUSCULAR VOLUME 94 fL (80-100); MONOCYTES % (AUTO) 10.8 % (2.0-9.0); PLATELET COUNT (AUTO) 83 K/uL (150-450); RED BLOOD CELL COUNT(AUTO) 3.71 MIL/uL (4.00-5.20); RED CELL DISTRIBUTION WIDTH 14.1 % (11.5-14.5); WHITE BLOOD COUNT (AUTO) 9.4 K/uL (4.5-11.0)
[2023-12-28] MEDS: DEXTROSE 50%-WATER 25 GM/50 ML SYRINGE IVP PRN (05:58)
[2023-12-28 06:15] LABS: GLUCOMETER DEV NAME(LOC) ICUN.5; GLUCOSE,POINT OF CARE 56 MG/DL (70-110)
[2023-12-28 06:37] LABS: CALCIUM, TOTAL 7.5 mg/dL (8.8-10.5); CREATININE 3.12 mg/dL (0.60-1.30); POTASSIUM 3.5 mmol/L (3.5-5.1)
[2023-12-28 06:45] LABS: GLUCOMETER DEV NAME(LOC) ICUN.5; GLUCOSE,POINT OF CARE 155 MG/DL (70-110)
[2023-12-28 08:00] VITALS: BP 110/49; PULSE 63; PULSE 67; RESP 12; TEMP 98.2
[2023-12-28] MEDS: MIDODRINE HCL 5 MG TABLET PO SCH (09:07)
[2023-12-28 09:50] LABS: ALBUMIN 1.3 g/dL (3.4-5.0); BILIRUBIN,DIRECT 0.1 mg/dL (0.00-0.20); BILIRUBIN,TOTAL 0.5 mg/dL (0.1-1.0); TOTAL PROTEIN, SERUM 4.4 g/dL (6.4-8.2)
[2023-12-28 12:00] VITALS: BP 89/44; PULSE 95; RESP 24; TEMP 98
[2023-12-28] MEDS: POTASSIUM CHLORIDE 20 MEQ ER TABLET PO ONE (14:14)
[2023-12-28 16:00] VITALS: BP 101/43; PULSE 70; PULSE 73; RESP 19; TEMP 98.3
[2023-12-28 17:06] LABS: S PNEUMO SOURCE Urine; STREP PNEUMONIAE AG URINE Negative (Negative)
[2023-12-28 20:00] VITALS: BP 106/53; PULSE 81; RESP 20; TEMP 97.7
[2023-12-28 21:36] LABS: GLUCOMETER DEV NAME(LOC) ICU.S6; GLUCOSE,POINT OF CARE 242 MG/DL (70-110)
[2023-12-28 21:45] LABS: GLUCOMETER DEV NAME(LOC) ICU.S6; GLUCOSE,POINT OF CARE 228 MG/DL (70-110)
[2023-12-29] VITALS (12 sets, daily range): BP systolic 83–143; BP diastolic 37–76; PULSE 68–78; RESP 9–18; TEMP 97.5–98.6
[2023-12-29 05:40] LABS: GLUCOMETER DEV NAME(LOC) ICUN.5; GLUCOSE,POINT OF CARE 230 MG/DL (70-110)
[2023-12-29 05:57] LABS: BASOPHILS % (AUTO) 0.1 % (0.0-2.0); EOSINOPHILS % (AUTO) 1.2 % (1.0-6.0); HEMATOCRIT 33.9 % (36-46); HEMOGLOBIN 11.2 g/dL (12.0-16.0); LYMPHOCYTES % (AUTO) 17.6 % (22.0-44.0); MEAN CORPUSCULAR HEMOGLOBIN 31.8 pg (26.0-34.0); MEAN CORPUSCULAR HGB CONC 33.2 G/dL (31.0-37.0); MEAN CORPUSCULAR VOLUME 96 fL (80-100); MONOCYTES # (AUTO) 1.1 K/uL (0.1-1.0); MONOCYTES % (AUTO) 9.8 % (2.0-9.0); NEUTROPHILS # (AUTO) 7.9 K/uL (1.8-7.7); NEUTROPHILS % (AUTO) 71.3 % (40.0-70.0); PLATELET COUNT (AUTO) 121 K/uL (150-450); RED BLOOD CELL COUNT(AUTO) 3.53 MIL/uL (4.00-5.20); RED CELL DISTRIBUTION WIDTH 14.5 % (11.5-14.5); WHITE BLOOD COUNT (AUTO) 11.1 K/uL (4.5-11.0)
[2023-12-29 06:03] LABS: CALCIUM, TOTAL 7.1 mg/dL (8.8-10.5); CREATININE 4.04 mg/dL (0.60-1.30); POTASSIUM 3.7 mmol/L (3.5-5.1)
[2023-12-29] MEDS: FUROSEMIDE 20 MG TABLET PO SCH (11:32)
[2023-12-29] MEDS ORDERED: SODIUM CHLORIDE 0.9% 2,000 ML ONE (11:39)
[2023-12-29] MEDS ORDERED: HEPARIN SODIUM,PORCINE 1,000 UNITS/ML VIAL IVP ONE (12:00)
[2023-12-29] MEDS: HYDROCODONE/ACETAMINOPHEN 5-325 MG TABLET PO PRN (12:48)
[2023-12-29 13:56] LABS: GLUCOMETER DEV NAME(LOC) ICUN.5; GLUCOSE,POINT OF CARE 235 MG/DL (70-110)
[2023-12-29 18:15] LABS: GLUCOMETER DEV NAME(LOC) ICUN.5; GLUCOSE,POINT OF CARE 128 MG/DL (70-110)
[2023-12-29] MEDS: HEPARIN SODIUM,PORCINE 1,000 UNITS/ML VIAL IVP PRN ×2 (18:37)
[2023-12-29 21:01] LABS: GLUCOMETER DEV NAME(LOC) ICUN.5; GLUCOSE,POINT OF CARE 161 MG/DL (70-110)
[2023-12-30] VITALS: BP 101/39; PULSE 65; RESP 10; TEMP 97.6
[2023-12-30 04:00] VITALS: BP 91/45; PULSE 73; RESP 14; TEMP 97.9
[2023-12-30 05:36] LABS: BASOPHILS % (AUTO) 0.3 % (0.0-2.0); EOSINOPHILS % (AUTO) 1.6 % (1.0-6.0); HEMATOCRIT 29.2 % (36-46); HEMOGLOBIN 9.9 g/dL (12.0-16.0); LYMPHOCYTES # (AUTO) 1.4 K/uL (1.0-4.8); LYMPHOCYTES % (AUTO) 13.5 % (22.0-44.0); MEAN CORPUSCULAR HEMOGLOBIN 32.2 pg (26.0-34.0); MEAN CORPUSCULAR VOLUME 95 fL (80-100); MONOCYTES # (AUTO) 0.7 K/uL (0.1-1.0); MONOCYTES % (AUTO) 6.6 % (2.0-9.0); PLATELET COUNT (AUTO) 133 K/uL (150-450); RED BLOOD CELL COUNT(AUTO) 3.07 MIL/uL (4.00-5.20); RED CELL DISTRIBUTION WIDTH 14.4 % (11.5-14.5); WHITE BLOOD COUNT (AUTO) 10.2 K/uL (4.5-11.0)
[2023-12-30 05:51] LABS: ALBUMIN 1.1 g/dL (3.4-5.0); BILIRUBIN,TOTAL 0.5 mg/dL (0.1-1.0); CALCIUM, TOTAL 7.2 mg/dL (8.8-10.5); CREATININE 2.75 mg/dL (0.60-1.30); POTASSIUM 3.1 mmol/L (3.5-5.1); TOTAL PROTEIN, SERUM 3.9 g/dL (6.4-8.2)
[2023-12-30 06:20] LABS: GLUCOMETER DEV NAME(LOC) ICUN.5; GLUCOSE,POINT OF CARE 133 MG/DL (70-110)
[2023-12-30 08:00] VITALS: BP 112/42; PULSE 67; RESP 16; TEMP 98
[2023-12-30] MEDS: ETHYL ALCOHOL 62% ANTISEPTIC NASAL SANITIZER 0.6 ML AMPUL NASAL SCH (08:53)
[2023-12-30] MEDS: MIDODRINE HCL 5 MG TABLET PO SCH (08:54)
[2023-12-30] MEDS: AMIODARONE HCL 200 MG TABLET PO SCH (08:54)
[2023-12-30 12:00] VITALS: BP 106/59; PULSE 74; PULSE 79; RESP 18; TEMP 98.2
[2023-12-30 12:01] LABS: CALCIUM, TOTAL 7.5 mg/dL (8.8-10.5); CREATININE 2.99 mg/dL (0.60-1.30); POTASSIUM 3.5 mmol/L (3.5-5.1)
[2023-12-30 16:00] VITALS: PULSE 75
[2023-12-30 18:10] LABS: GLUCOMETER DEV NAME(LOC) ICUN.5; GLUCOSE,POINT OF CARE 228 MG/DL (70-110)
[2023-12-30 18:10] LABS: GLUCOMETER DEV NAME(LOC) ICU.S6; GLUCOSE,POINT OF CARE 242 MG/DL (70-110)
[2024-01-01] MEDS ORDERED: EPOETIN ALFA 10,000 UNITS/ML VIAL SQ SCH (09:00)
== END 2023-12-30 18:50 | disposition short-term general hospital (02) | DRG 871 ==
LOC: EMS 10:36 → ICUN 12:06 → ICU 18:47
PROVIDERS: ADMIT Hospitalist; ATTEND Hospitalist
PROC: 05HC33Z Insertion of Infusion Device into Left Basilic Vein, Percutaneous Approach (ICD-10-PCS; 2023-12-22)
PROC: 5A1D70Z Performance of Urinary Filtration, Intermittent, Less than 6 Hours Per Day (ICD-10-PCS; principal; 2023-12-24)
PROC: 02HV33Z Insertion of Infusion Device into Superior Vena Cava, Percutaneous Approach (ICD-10-PCS; 2023-12-24)
PROC: 5A1D70Z Performance of Urinary Filtration, Intermittent, Less than 6 Hours Per Day (ICD-10-PCS; 2023-12-25)
PROC: 5A1D70Z Performance of Urinary Filtration, Intermittent, Less than 6 Hours Per Day (ICD-10-PCS; 2023-12-26)
PROC: 5A1D70Z Performance of Urinary Filtration, Intermittent, Less than 6 Hours Per Day (ICD-10-PCS; 2023-12-27)
PROC: 5A1D70Z Performance of Urinary Filtration, Intermittent, Less than 6 Hours Per Day (ICD-10-PCS; 2023-12-29)
DX: A41.9 Sepsis, unspecified organism (principal); E11.10 Type 2 diabetes mellitus with ketoacidosis without coma; R65.21 Severe sepsis with septic shock; R57.1 Hypovolemic shock; N17.0 Acute kidney failure with tubular necrosis; K72.00 Acute and subacute hepatic failure without coma; G92.8 Other toxic encephalopathy; N39.0 Urinary tract infection, site not specified; E87.0 Hyperosmolality and hypernatremia; M62.82 Rhabdomyolysis; D68.9 Coagulation defect, unspecified; J98.11 Atelectasis; E87.1 Hypo-osmolality and hyponatremia; Z20.822 Contact with and (suspected) exposure to COVID-19; E11.22 Type 2 diabetes mellitus with diabetic chronic kidney disease; E87.6 Hypokalemia; N18.9 Chronic kidney disease, unspecified; D69.6 Thrombocytopenia, unspecified; E87.5 Hyperkalemia; E11.65 Type 2 diabetes mellitus with hyperglycemia; K59.00 Constipation, unspecified; E87.8 Other disorders of electrolyte and fluid balance, not elsewhere classified; I48.0 Paroxysmal atrial fibrillation; K82.8 Other specified diseases of gallbladder; I07.1 Rheumatic tricuspid insufficiency; Z79.4 Long term (current) use of insulin; Z79.899 Other long term (current) drug therapy
CPT/HCPCS: 36245; 36569; 36600; 51702; 70450; 70490; 71045; 71250; 72141; 72146; 72148; 72192; 73700; 74150; 76705; 76770; 76937; 80048; 80053; 80074; 80076; 80307; 81001; 81003; 82009; 82010; 82105; 82140; 82247; 82248; 82550; 82805; 82947; 82962; 83010; 83036; 83516; 83605; 83690; 83735; 83880; 83930; 84100; 84145; 84484; 85025; 85045; 85610; 86645; 86709; 87040; 87081; 87086; 87186; 87340; 87449; 87899; 90935; 92526; 92610; 93005; 93306; 93970; 97162; 97530; 99291; C9113; G0480; G0481; J0282; J0610; J0696; J1644; J1815; J1940; J2250; J2270; J2370; J2405; J3480; J3490; J7030; J7050; J7060; J7120; P9046; Q9967; 36415-L1; 36415-TC; X7700